=== PATIENT | male | born 1950 ===

== ENCOUNTER 2019-11-11 13:23 | Observation (INO) | payer MEDICARE ==
--- NOTE | 2019-11-11 13:43 | RAD ---
XR Chest 1 View Portable HISTORY: Dizziness, shortness of breath and nausea COMPARISON: None FINDINGS: The heart size is normal. There are postop changes of median sternotomy. The lungs are well expanded without focal areas of consolidation, pneumothorax or pleural effusions. IMPRESSION: No radiographic evidence of acute cardiopulmonary process.
[2019-11-11 13:48] LABS: #Basophils 0.1 thou/uL (0.0-0.2); #Eosinphils 0.2 thou/uL (0.0-0.7); #Lymphocytes 1.3 thou/uL (1.20-3.40); #Monocytes 0.7 thou/uL (0.11-0.59); #Neutrophils 3.8 thou/uL (1.40-6.50); %Eosinophils 3.4 % (0.0-10.0); %Monocytes 11.6 % (0.0-10.0); Hemoglobin 13.7 g/dL (14.0-18.0); Mean Corpuscular HGB CONC 33.2 g/dL (32.0-36.0); Mean Corpuscular Hemoglobin 28.7 pg (27.0-31.0); Mean Corpuscular Volume 86.5 fL (78.0-98.0); Mean Platelet Volume 7.7 fL (7.4-10.4); Platelet Count 253 thou/uL (130-400); Red Blood Cell (RBC) Count 4.79 mill/uL (4.70-6.10)
[2019-11-11] MEDS ORDERED: Iopamidol-370 76% 500 ML 1 ML ONE (13:52)
[2019-11-11 14:05] LABS: ALT (SGPT) 29 U/L (8-55); AST (SGOT) 34 U/L (5-34); Albumin 3.9 g/dL (3.4-4.8); Alkaline Phosphatase 117 U/L (40-110); Anion Gap 16 mmol/L (10-20); BUN (Urea Nitrogen) 63 mg/dL (8.4-25.7); Bilirubin, Total 0.4 mg/dL (0.2-1.2); CK (CPK) 121 U/L (30-200); Calc. Creatinine Clearance 0 mL/min (70-130); Calcium 9.1 mg/dL (7.8-10.44); Carbon Dioxide 23 mmol/L (23-31); Chloride 103 mmol/L (98-107); Estimated GFR-MDRD 36; Globulin 2.8 g/dL (2.4-3.5); Glucose 70 mg/dL (83-110); Lipase 79 U/L (8-78); Potassium 3.8 mmol/L (3.5-5.1); Protein, Total 6.7 g/dL (5.8-8.1); Sodium 138 mmol/L (136-145)
--- NOTE | 2019-11-11 14:06 | CT ---
EXAM: CTA of the chest HISTORY: Dizziness COMPARISON: None TECHNIQUE: Multiple contiguous axial images were obtained a CTA of the chest with contrast per pulmon robert embolism protocol. 3-D oblique MIP reformats and direct coronal reformats were performed. FINDINGS: HEART: Normal in size without focal cardiac abnormality. Dense calcifications in the coronary arterie s. The patient is status post CABG. PULMONARY ARTERIES: Normal in caliber without filling defects to suggest pulmonary emboli. MEDIASTINUM: No hilar or mediastinal lymphadenopathy. LUNGS: No focal infiltrates or masses. PLEURAL SPACE: Tiny left pleural effusion. CHEST WALL SOFT TISSUES: Unremarkable VISUALIZED OSSEOUS STRUCTURES: Degenerative changes in the spine. VISUALIZED SUBDIAPHRAGMATIC STRUCTURES: Status post cholecystectomy. Postsurgical changes in the stom ach. IMPRESSION: 1. No evidence of pulmonary thromboembolism 2. Small left pleural effusion
--- NOTE | 2019-11-11 14:13 | CT ---
CT BRAIN NONCONTRAST: DATE: 11/11/2019 HISTORY: 69-year-old male with dizziness, nausea, diaphoresis. COMPARISON: None FINDINGS: There is no evidence of acute intra-axial or extra-axial hemorrhage. There is no midline shift or any other mass effect. There is no extra-axial fluid collection. There is no evidence of obstructive hydrocephalus. Calvarium is intact. There is an approximately 1.2 cm focal hypodense lesion at the po sterolateral aspect of the left cerebellar hemisphere consistent with a lacunar infarction. It is probably old, but infrequently, acute or subacute lacunar infarctions can be this hypodense. There is a slightly smaller focal hypodense lesion in the contralateral corresponding portion of the right cerebellar hemisphere. There is very heavy atherosclerotic calcification of the bilateral intracrania l vertebral arteries and of the tortuous basilar artery. On axial image 9 of 36, there is a 0.4 cm bubble of gas located directly posterior lateral to the posterior lateral aspect of the left lateral orbital wall. This is actually within a severely partially opacified left lateral extension of the left sphenoid air cell, rather than intracranial gas. There is osseous mural thickening of the berkowitz of that lateral extension of the sphenoid sinus indicating that this is a chronic, long-standing sinusitis. IMPRESSION: 1. Small lacunar infarction in left cerebellar hemisphere, and possibly one on the right, of indeterm inate ages. 2. 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 3. Long-standing chronic sinusitis involving left far lateral extension of the left sphenoid air cell
--- NOTE | 2019-11-11 19:47 | PDOC.HHP ---
Hospitalist HPI - History of Present Illness dizziness, dyspnea, nausea History of Present Illness: 69M with PMH CVA, CHF, T2DM, HTN who presents to ED for evaluation of dizziness , dyspnea, nausea x 30 minutes. Patient reports he was working on neighbors property and developed dizziness, dyspnea, nausea and diaphoresis similar to hypoglycemic episodes in the past (patient has T2DM on bydureon). He tried to get something to eat but she did not have anything in fridge. He tried to walk to his house but became symptomatic along the way and lied down and called 911. He states he was late for lunch by this time. Patient denies any unilateral weakness, numbness with episode today, no worsening of chronic facial droop (R facial droop reportedly due to bells palsy). He has had 3 strokes and states this is not like the other times at all. In ED, patient was being considered for stroke rule out, TPA refused due to improved symptoms and low NIHSS. CT head with age indeterminate lacunar infarct. Vertebrobasilar calcifications suggested as well as chronic L sinusitis. CTA chest with no pulmonary embolism, small L pleural effusion. CXR with no acute findings. Admission labs significant for Cr 1.84, slightly elevated AKP and BNP. EKG NSR w/ 1st degree avb. Glucose was 70 on admission BMP. Patient reports symptoms resolved with food intake and he feels fine now. ED paged Dr Ratliff to discuss CTA, no new orders placed based by ED based on these calls. ED Course: VS VITAL SIGNS Jaylin Nov 11, 2019 18:31 PADILLA Moreno Madisen BP: 139/74 MAP: 95 Pulse: 84 Resp: 17 Temp: 97.6 (Axillary) Pain: 0 O2 sat: 99 on (Room Air) Time: 11/11/2019 18:31. meds carvedilol FriNov 11, 2019 18:39 PADILLA Moreno Madisen tablet : Strength - 6.25 mg : ORAL Patient Dose: 6.25 mg Oral 2 times a day. clopidogrel FriNov 11, 2019 18:40 PADILLA Moreno Madisen tablet : Strength - 75 mg : ORAL Patient Dose: 75 mg Oral once a day. furosemide oral FriNov 11, 2019 18:40 PADILLA Moreno Madisen tablet : Strength - 40 mg : ORAL Patient Dose: 40 mg Oral 2 times a day. potassium FriNov 11, 2019 18:40 PADILLA Moreno Madisen tablet : Strength - 75 mg : ORAL Patient Dose: 20 mg Oral 2 times a day. pravastatin [facility] Nov 11, 2019 18:40 PADILLA Moreno Madisen tablet : Strength - 40 mg : ORAL Patient Dose: 40 mg Oral once a day. CeleXA [facility] Nov 11, 2019 18:41 PADILLA Moreno Madisen tablet : Strength - 20 mg : ORAL Patient Dose: 20 mg Oral once a day. Aspir-81 [facility] Nov 11, 2019 18:41 PADILLA Moreno Madisen tablet,delayed release (DR/EC) : Strength - 81 mg : ORAL Patient Dose: 81 mg Oral once a day. Hospitalist ROS - Review of Systems Constitutional: reports: sweats, weakness. denies: fever, chills Eyes: denies: vision change, redness ENT: denies: throat pain, throat swelling Respiratory: denies: cough, dry, shortness of breath, SOB with excertion Cardiovascular: reports: light headedness. denies: chest pain, palpitations Gastrointestinal: reports: nausea. denies: abdominal pain, melena, hematochezia Genitourinary: denies: dysuria, frequency Musculoskeletal: denies: neck pain, shoulder pain Skin: denies: rash, lesions Neurological: denies: weakness, numbness, incoordination, change in speech, confusion, seizures Other: transient dizziness positive, positive for chronic R bells palsy All other systems reviewed; all pertinent +/- noted in HPI/Subj - Medication Medications: reviewed see HPI Hospitalist History - Past Medical History Other Medical History: R sided weakness from previous CVA, HTN, DMt2, CHF. - Past Surgical History Other Surgical History: CABG x2, cholecystectomy, gastric sleeve. - Family History Family History: reports: no pertinent history - Social History Other Social History: Patient denies alcohol use Patient denies drug use Patient has no smoking history Lives at home with family. - Exam General Appearance: NAD, awake alert Eye: PERRL, anicteric sclera ENT - other findings: R facial droop reported chronic Neck: supple, symmetric, no JVD, no thyromegaly, no lymphadenopathy, no carotid bruit Heart: RRR, no murmur, no gallops, no rubs, normal peripheral pulses Respiratory: CTAB, no wheezes, no rales, no ronchi, normal chest expansion, no tachypnea, normal percussion Gastrointestinal: soft, non-tender, non-distended, normal bowel sounds, no palpable masses, no hepatomegaly, no splenomegaly, no bruit Extremities: no cyanosis, no clubbing, no edema Skin: normal turgor, no lesions, no rashes Neurological: cranial nerve grossly intact, normal sensation to touch, no weakness, no focal deficits, no new deficit, facial droop (chronic). negative: hemiplegia, speech deficit, vision deficit Musculoskeletal: normal tone, normal strength, no muscle wasting Psychiatric: normal affect, normal behavior, A&O x 3 Hospitalist Results - Labs Result Diagrams: 11/11/19 13:34 11/11/19 13:34 Lab results: WBC 6.0 thou/uL (4.8-10.8) 11/11/19 13:34 Hgb 13.7 g/dL (14.0-18.0) L 11/11/19 13:34 Hct 41.4 % (42.0-52.0) L 11/11/19 13:34 MCV 86.5 fL (78.0-98.0) 11/11/19 13:34 Plt Count 253 thou/uL (130-400) 11/11/19 13:34 Neutrophils % 63.0 % (42.0-75.0) 11/11/19 13:34 Sodium 138 mmol/L (136-145) 11/11/19 13:34 Potassium 3.8 mmol/L (3.5-5.1) 11/11/19 13:34 Chloride 103 mmol/L (98-107) 11/11/19 13:34 Carbon Dioxide 23 mmol/L (23-31) 11/11/19 13:34 BUN 63 mg/dL (8.4-25.7) H 11/11/19 13:34 Creatinine 1.84 mg/dL (0.7-1.3) H 11/11/19 13:34 Glucose 70 mg/dL (83-110) L 11/11/19 13:34 Calcium 9.1 mg/dL (7.8-10.44) 11/11/19 13:34 Total Bilirubin 0.4 mg/dL (0.2-1.2) 11/11/19 13:34 AST 34 U/L (5-34) 11/11/19 13:34 ALT 29 U/L (8-55) 11/11/19 13:34 Alkaline Phosphatase 117 U/L (40-110) H 11/11/19 13:34 Creatine Kinase 121 U/L (30-200) 11/11/19 13:34 Troponin I Less than 0.010 ng/mL (< 0.028) 11/11/19 13:34 B-Natriuretic Peptide 154.2 pg/mL (0-100) H 11/11/19 13:34 Serum Total Protein 6.7 g/dL (5.8-8.1) 11/11/19 13:34 Albumin 3.9 g/dL (3.4-4.8) 11/11/19 13:34 Lipase 79 U/L (8-78) H 11/11/19 13:34 Additional comment: reviewed, see HPI Hospitalist H&P A/P - Plan Plan: 69M with PMH CVA, CHF, T2DM, HTN who presents to ED for evaluation of dizziness , dyspnea, nausea x 30 minutes. # symptomatic hypoglycemia - patient reports dizziness, dyspnea, nausea, sweating, blood sugar 70 in ED, on bydureon and he reports these symptoms most consistent with previous low blood sugar episodes and felt fine and at baseline after eating. He has had 3 strokes and states this is not like the other times - originally considered stroke rule out, CT with likely old lacunar infarcts, TPA refused due to improved symptoms and low NIHSS. CT head with age indeterminate lacunar infarct. Vertebrobasilar calcifications suggested as well as chronic L sinusitis. CTA chest with no pulmonary embolism, small L pleural effusion. CXR with no acute findings. Admission labs significant for Cr 1.84, slightly elevated AKP and BNP. EKG NSR w/ 1st degree avb. Glucose was 70 on admission BMP. Patient reports symptoms resolved with food intake and he feels fine now. ED paged Dr Ratliff to discuss CTA, no new orders placed based by ED based on these calls. 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
[2019-11-11 21:46] VITALS: BMI 31.6
[2019-11-11] MEDS ORDERED: Dextrose 5% in Water 1,000 ML IV PRN (22:29)
[2019-11-11] MEDS ORDERED: Acetaminophen 325 MG TAB PO PRN (22:29)
[2019-11-11] MEDS ORDERED: Dextrose 50% Abboject 50 ML SYRINGE SLOW IVP PRN (22:29)
[2019-11-11] MEDS ORDERED: HumaLOG 300 UNITS/3 ML VIAL SC PRN (22:29)
[2019-11-11] MEDS ORDERED: Bisacodyl 5 MG TAB PO PRN (22:29)
[2019-11-11] MEDS ORDERED: Bisacodyl 10 MG SUPP PR PRN (22:29)
[2019-11-11 23:00] LABS: Troponin I 0.032 ng/mL (< 0.028)
[2019-11-12] MEDS ORDERED: Sodium Chloride 0.9% 1,000 ML IV SCH (04:45)
[2019-11-12 04:52] LABS: #Basophils 0.1 thou/uL (0.0-0.2); #Eosinphils 0.3 thou/uL (0.0-0.7); #Lymphocytes 1.2 thou/uL (1.20-3.40); #Monocytes 0.6 thou/uL (0.11-0.59); #Neutrophils 3.9 thou/uL (1.40-6.50); %Basophils 1.1 % (0.0-1.0); %Eosinophils 4.4 % (0.0-10.0); %Monocytes 9.2 % (0.0-10.0); %Neutrophils 65.3 % (42.0-75.0); Hemoglobin 13.4 g/dL (14.0-18.0); Mean Corpuscular HGB CONC 32.3 g/dL (32.0-36.0); Mean Corpuscular Hemoglobin 28.1 pg (27.0-31.0); Mean Platelet Volume 7.7 fL (7.4-10.4); Platelet Count 237 thou/uL (130-400); RBC Distribution Width 13.2 % (11.5-14.5); Red Blood Cell (RBC) Count 4.76 mill/uL (4.70-6.10)
[2019-11-12 05:11] LABS: Anion Gap 12 mmol/L (10-20); BUN (Urea Nitrogen) 54 mg/dL (8.4-25.7); Calc. Creatinine Clearance 55 mL/min (70-130); Calcium 8.7 mg/dL (7.8-10.44); Carbon Dioxide 26 mmol/L (23-31); Chloride 106 mmol/L (98-107); Estimated GFR-MDRD 43; Glucose 78 mg/dL (83-110); Magnesium 2.1 mg/dL (1.6-2.6); Potassium 3.6 mmol/L (3.5-5.1); Sodium 140 mmol/L (136-145)
[2019-11-12] MEDS ORDERED: Aspirin 81 mg Enteric Coated Tablet PO SCH (09:00)
[2019-11-12] MEDS ORDERED: Enoxaparin Sodium 40 MG/0.4 ML SYRINGE SC SCH (09:00)
[2019-11-12] MEDS ORDERED: Carvedilol 6.25 MG TAB PO SCH (09:00)
[2019-11-12] MEDS ORDERED: Clopidogrel Bisulfate 75 MG TAB PO SCH (09:00)
--- NOTE | 2019-11-12 09:05 | CON ---
DATE OF CONSULTATION: 11/12/2019 CONSULTING PHYSICIAN: Hospitalist Service. IMPRESSION: 1. Probable transient stroke with expressive aphasia. 2. Recent episode of transient ataxia suggestive of possible cerebellar infarct. 3. Aspirin and Plavix failure. PLAN: 1. MRI of the brain. 2. Carotid Doppler. 3. Echocardiogram. 4. Consider change to Aggrenox one twice a day in place of the aspirin and Plavix. HISTORY OF PRESENT ILLNESS: Mr. Awad is a 69-year-old gentleman with a past history of hypertension, diabetes, hyperlipidemia, coronary artery disease, mild congestive heart failure, who presented last night with speech difficulties. At first, he felt cold and clammy and thought that his blood sugar was low. He dialed 911 himself. When EMS arrived, his blood sugar reportedly was 70. He was given a snack. His noted that when she first saw him that he was speaking in a garbled fashion and his words were nonsensical. After about 2 hours, he started speaking more clearly, but he continued to be dysarthric. There was questionably some right facial weakness. He does not recall any lateralized weakness or numbness. He felt a bit confused initially when he was feeling cold and clammy, but this cleared. He is feeling back to his baseline this morning. 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 This lasted all day long. He seemed to be better on Friday. He had a CT scan last night, which suggested the possibility of some cerebellar ischemic injury. He has heavy calcification of vertebral artery. He has been admitted for further evaluation. PAST MEDICAL HISTORY: As listed above. ALLERGIES: RAGLAN. MEDICATIONS: List reviewed. SOCIAL HISTORY: No tobacco or alcohol. FAMILY HISTORY: Noncontributory. REVIEW OF SYSTEMS: Ten-system review of systems is otherwise negative. PHYSICAL EXAMINATION: VITAL SIGNS: Blood pressure 160/68, pulse 86, respirations 16, and temperature 100.8. HEENT: Pupils are equal and reactive. Conjunctivae clear. Oropharynx clear. Cranium, normocephalic and atraumatic. NECK: Supple. No lymphadenopathy. EXTREMITIES: No cyanosis, clubbing, or edema. NEUROLOGIC: He is alert and cooperative. His speech is fluent and clear. Cranial nerves 2 through 12 are intact. Motor exam showed good strength bilaterally. There was no tremor or dysmetria present. Sensation was intact to light touch. Gait was not tested. No abnormal movements were seen. LABORATORY STUDIES: CBC was unremarkable. Chemistry panel showed a BUN of 54, creatinine 1.6, glucose of 78. SUMMARY: This is a 69-year-old gentleman with multiple vascular risk factors, who presented with transient aphasia. His blood sugar was 70, which would not seem to be underlying cause for such a deficit. I suspect that he had some transient ischemia in the middle cerebral artery territory. Prior to admission, he also had a day of transient ataxia, which would suggest that the cerebellar lesion may be a subacute infarct. Given that his last cardiac surgery was over a year ago, I would assume that his model photographers' would go along with a change to Aggrenox. I will follow up on the results of this test. Job ID: [id number]
--- NOTE | 2019-11-12 10:53 | PDOC.HOSPP ---
- Subjective Encounter Date: 11/12/19 Encounter Time: 10:51 Subjective: Mr. Awad was seen today in follow-up of slurred speech, and right sided facial numbness. He says all those symptoms have resolved. The patient believes it was due to low blood glucose. - Objective Vital Signs & Weight: Vital Signs (12 hours) Temp Pulse Resp BP BP Pulse Ox 11/12/19 07:37 97.8 F 100 12 137/85 82 L 11/12/19 04:00 98.0 F 87 16 118/75 96 11/12/19 00:04 98.1 F 74 16 144/81 H 96 Weight Weight 201 lb 12.8 oz I&O: 11/11/19 11/12/19 11/13/19 06:59 06:59 06:59 Intake Total 350 Output Total 380 Balance -30 Result Diagrams: 11/12/19 04:31 11/12/19 04:31 Additional Labs: Accuchecks 11/12/19 11/11/19 05:48 17:50 POC Glucose 96 85 Hospitalist ROS - Medication Medications: Active Medications Generic Name Dose Route Start Last Admin Trade Name Patrickq PRN Reason Stop Dose Admin Aspirin 81 mg 11/12/19 09:00 11/12/19 09:31 Ecotrin PO 81 mg DAILY CAITLYN Administration Carvedilol 6.25 mg 11/12/19 09:00 11/12/19 09:31 Coreg PO 6.25 mg BID CAITLYN Administration Clopidogrel Bisulfate 75 mg 11/12/19 09:00 11/12/19 09:31 Plavix PO 75 mg DAILY CAITLYN Administration Enoxaparin Sodium 40 mg 11/12/19 09:00 11/12/19 09:31 Lovenox SC 40 mg 0900 CAITLYN Administration - Exam Eye: PERRL Heart: RRR, no murmur, no gallops, no rubs, normal peripheral pulses Respiratory: CTAB, no wheezes, no rales, no ronchi, normal chest expansion, no tachypnea, normal percussion Gastrointestinal: soft, non-tender, non-distended, normal bowel sounds, no palpable masses, no hepatomegaly Extremities: no cyanosis, no edema Hosp A/P (1) TIA (transient ischemic attack) Code(s): G45.9 - TRANSIENT CEREBRAL ISCHEMIC ATTACK, UNSPECIFIED Status: Acute (2) Hypertension Code(s): I10 - ESSENTIAL (PRIMARY) HYPERTENSION Status: Chronic (3) Diabetes mellitus type 2 in obese Code(s): E11.69 - TYPE 2 DIABETES MELLITUS WITH OTHER SPECIFIED COMPLICATION; E66.9 - OBESITY, UNSPECIFIED Status: Chronic (4) Coronary artery disease Code(s): I25.10 - ATHSCL HEART DISEASE OF [place] CORONARY ARTERY W/O ANG PCTRS Status: Chronic - Plan * Probable TIA- will check an MRI of the brain and carotid doppler * Will continue Aspirin and plavix for now, as patient has a history of multiple cardiac STENT's * Will check a lipid panel * HTN- blood pressure is stable * DM-blood glucose is stable
--- NOTE | 2019-11-12 11:40 | ULT ---
BILATERAL CAROTID DUPLEX ULTRASOUND: HISTORY: Atherosclerotic disease in the brain on CT TECHNIQUE: Grayscale, color-flow and spectral Doppler ultrasound imaging of the extracranial carotid artery syst ems was performed bilaterally. FINDINGS: No significant plaque formation is seen. The peak systolic velocity in the right ICA measures 82 cm/s with an end-diastolic velocity of 26 cm/ s and a systolic ratio of 1.23. The peak systolic velocity in the left ICA measures 80 cm/s with an end-diastolic velocity of 29 cm/s and a systolic ratio of 0.89. Flow in both vertebral arteries remains antegrade. IMPRESSION: No evidence of hemodynamically significant stenosis in either ICA
[2019-11-12] MEDS ORDERED: Furosemide 40 MG TAB PO SCH (13:00)
--- NOTE | 2019-11-12 15:29 | MRI ---
Exam: Brain MRI without contrast HISTORY: Right facial numbness. Dysarthria. Evaluate for transient ischemic attack. COMPARISON: None FINDINGS: Calvarial marrow signal intensity: Appropriate T1 signal Gradient echo sequence: No hemorrhage Brain parenchyma: No mass, mass effect or midline shift. Brain volume, age-appropriate. Cortical carlisle-white matter differentiation: Preserved Restricted diffusion: Central arterial flow voids are maintained. Absent restricted diffusion White matter signal intensities:No significant T2 or FLAIR white matter hyperintensities. Cavitary wh ite matter infarct is noted in the posterior left lentiform nucleus and anterior left centrum semiovale. Sinuses: Mild mucosal thickening of the sphenoid sinuses and ethmoid air cells. IMPRESSION: 1. Absent restricted diffusion. No acute infarct. 2. Age-appropriate atrophy.
[2019-11-12 15:42] LABS: Cardiac Risk 3.1 (Less than 4.5)
[2019-11-12 15:47] VITALS: BP 127/81; TEMP 97.9
--- NOTE | 2019-11-12 18:18 | DIS ---
DATE OF ADMISSION: 11/11/2019 DATE OF DISCHARGE: 11/12/2019 DISCHARGE DISPOSITION: Home. DISCHARGE DIAGNOSES: 1. Possible transient ischemic attack. 2. Diabetes mellitus, type 2. 3. Hypertension. 4. History of previous cerebrovascular accident. DISCHARGE MEDICATIONS: There is no change in the patient's medications. He is to continue; 1. Pravastatin 40 mg at bedtime. 2. Lasix 40 mg twice daily. 3. Plavix 75 mg daily. 4. Celexa 20 mg daily. 5. Carvedilol 6.25 mg twice daily. 6. Aspirin 81 mg a day. 7. Potassium gluconate 20 mEq twice daily. IMAGING DONE DURING HOSPITAL STAY: The patient had a CT angiogram of the chest showing no evidence of any pulmonary embolism. There was a small left pleural effusion. The patient had a CT scan of the brain in which there was a small lacunar infarct in the left cerebellar hemisphere and severe atherosclerotic calcification. The patient had bilateral carotid Dopplers, which were negative for any flow-limiting disease and also had an MRI of the brain, which was negative for any acute infarct. CODE STATUS: Full code. ALLERGIES: TO METOCLOPRAMIDE. HOSPITAL COURSE: Mr. Awad is a pleasant 69-year-old gentleman, who presented to the emergency room with complaints of altered mental status, right facial droop, and some dysarthria. The patient says he got little diaphoretic and noticed that his blood sugar was in the low normal range around 70. It is his opinion that he likely was hypoglycemic. However, the EMS brought him to the hospital, where he was placed in observation. He had an MRI and carotid Dopplers, which were negative. 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 Job ID: [id number]
[2019-11-12] MEDS ORDERED: Atorvastatin Calcium 10 MG TAB PO SCH (21:00)
[2019-11-12] MEDS ORDERED: Citalopram 20 MG TAB PO SCH (21:00)
--- NOTE | 2019-11-13 15:33 | EKG ---
Test Reason : Blood Pressure : / mmHG Vent. Rate : 076 BPM Atrial Rate : 076 BPM P-R Int : 266 ms QRS Dur : 110 ms QT Int : 410 ms P-R-T Axes : -11 004 210 degrees QTc Int : 461 ms Sinus rhythm with 1st degree A-V block Prolonged QT Abnormal ECG Confirmed by KENTRELL POON, ABBE ([id number]), website/blog editor ROXANNE ABDUL ([id number]) on 11/13/2019 3:33:16 PM Referred By: Confirmed By:ABBE PFEIFFER MD
== END 2019-11-12 17:05 | disposition home or self-care (01) ==
LOC: ERS 13:23 → EDBD 13:23 → 2SE 17:32
PROVIDERS: ADMIT Internal Medicine; ATTEND Internal Medicine
DX: R41.82 Altered mental status, unspecified (principal); R47.1 Dysarthria and anarthria; R42 Dizziness and giddiness; E11.649 Type 2 diabetes mellitus with hypoglycemia without coma; G51.0 Bell's palsy; I69.351 Hemiplegia and hemiparesis following cerebral infarction affecting right dominant side; I11.0 Hypertensive heart disease with heart failure; I50.9 Heart failure, unspecified; J32.3 Chronic sphenoidal sinusitis; I67.2 Cerebral atherosclerosis; I25.10 Atherosclerotic heart disease of native coronary artery without angina pectoris; E66.9 Obesity, unspecified; Z68.31 Body mass index [BMI] 31.0-31.9, adult; Z79.02 Long term (current) use of antithrombotics/antiplatelets; Z79.82 Long term (current) use of aspirin; Z79.899 Other long term (current) drug therapy; Z88.8 Allergy status to other drugs, medicaments and biological substances; Z95.1 Presence of aortocoronary bypass graft; Z95.5 Presence of coronary angioplasty implant and graft; Z98.84 Bariatric surgery status
CPT/HCPCS: 36415; 36416; 70450; 70551; 71045; 71275; 80048; 80053; 80061; 82550; 83690; 83735; 83880; 84484; 85025; 93005; 93880; 94760; 96360; 96361; 96372; G0378; J1650; Q9967